=== PATIENT | male | born 1995 | race Caucasian/White ===

== ENCOUNTER 2022-07-05 17:41 | Emergency (ER) | payer OTHER ==
[~2022-07-05] VITALS: Ht 180.3 cm; Wt 61.2 kg
--- NOTE | 2022-07-05 17:50 | NUR ---
BIBA TO ROOM 5
[2022-07-05 17:51] VITALS: BP 111/68
--- NOTE | 2022-07-05 18:10 | NUR ---
26/M [place] FROM STREETS. PER EMS BYSTANDERS CALLED 911 STATING PATIENT HAD A "POSSIBLE SEIZURE," STATING PATIENT FELL FORWARD. SOME BLEEDING NOTED TO NOSE, PATIENT DENIES HEAD OR NECK PAIN, REPORTS HE IS UNSURE OF MEDS HE TAKES FOR SEIZURES BUT STATES HE IS COMPLIANT. UPON ARRIVAL PATIENT PLACED ON BEDSIDE BREAKER HAND, SEIZURE PRECAUTIONS IN PLACE.
--- NOTE | 2022-07-05 18:13 | NUR ---
26YO MALE PT BIBA FROM STREETS DUE TO SEIZURE. PER [facility], 911 WAS CALLED BY BYSTANDERS WHO STATE PT FELL FORWARD AND HAD "SHAKES" FOR UNKNOWN DURATION. UPON ARRIVAL PT PRESENTS WITH DRIED BLOOD AROUND NOSE AND IN NOSTRILS, NO ACTIVE BLEEDING AT THIS TIME. PT STATES BEING COMPLIANT WITH MEDICATION, UNSURE OF NAME.DENIES PAIN , N/V/D , SOB, FEVER OR CHILLS. PT AAOX4, ON BATCH FREEZER, BED AT LOWEST POSITION, BED RAILS UPX2. SEIZURE PADS IN PLACE. HX:SEIZURES NKA
[2022-07-05] MEDS ORDERED: LORazepam 1 MG TAB PO ONE (19:00)
[2022-07-05 20:01] LABS: BASOPHILS % (AUTO) 0.6 % (0.0-2.0); EOSINOPHILS # (AUTO) 0.1 K/uL (0-0.4); HEMATOCRIT 40.4 % (36-52); HEMOGLOBIN 13.7 g/dL (12.0-18.0); LYMPHOCYTES # (AUTO) 1.6 K/uL (2.0-11.5); LYMPHOCYTES % (AUTO) 22.9 % (20.5-51.1); MEAN CORPUSCULAR HEMOGLOBIN 32 pg (27-31); MEAN CORPUSCULAR HGB CONC 34 g/dL (33-37); MEAN CORPUSCULAR VOLUME 94.1 fL (80-94); MONOCYTES # (AUTO) 0.7 K/uL (0.8-1.0); MONOCYTES % (AUTO) 10.1 % (1.7-9.3); NEUTROPHILS # (AUTO) 4.5 K/uL (1.8-7.7); NEUTROPHILS % (AUTO) 64.4 % (42.2-75.2); PLATELET COUNT (AUTO) 230 K/uL (140-450); RED BLOOD CELL COUNT(AUTO) 4.29 MIL/uL (4.20-6.10); RED CELL DISTRIBUTION WIDTH 13.8 % (11.6-13.7); WHITE BLOOD COUNT (AUTO) 7.1 K/uL (4.8-10.8)
--- NOTE | 2022-07-05 20:18 | NUR ---
ASSISTED PT TO BATHROOM. GAIT STEADY.
[2022-07-05 20:20] LABS: ALBUMIN 3.7 g/dL (3.4-5.0); ANION GAP 13.6 (8-16); CARBON DIOXIDE 28.7 mmol/L (21-32); CREATININE 0.8 mg/dL (0.6-1.3); POTASSIUM 3.3 mmol/L (3.5-5.1)
--- NOTE | 2022-07-05 20:27 | NUR ---
URINE OBTAINED AND SENT TO LAB
--- NOTE | 2022-07-05 20:45 | NUR ---
26YR OLD MALE BIB EMS C/O FALL S/P SZ. PT WAS WALKING ON SIDEWALK, BYSTANDERS WITNESSED HIM FALL TO SZ. FACIAL INJURY TO NOSE WITH DRY BLOOD. R EYE WITH SLIGHT BRUISING AND SWELLING UNDER EYE. PAIN LEVEL 5/10. PT IS A&OX3. SPEECH IS DELAYED. PT IS FROM THE STREETS. SPOKE WITH PT FATHER PER REQUEST. HOB ELEVATED BED AT LOWEST POSITION. NKDA SZ
[2022-07-05 20:46] LABS: TOTAL BILIRUBIN 0.3 mg/dL (0.0-1.0)
[2022-07-05 21:08] LABS: BENZODIAZEPINE, URINE POSITIVE ng/mL (NEG <=200)
--- NOTE | 2022-07-05 21:08 | NUR ---
PT DAD AND DR FERRARA AT BEDSIDE
[2022-07-05 21:09] LABS: BARBITURATE, URINE NEGATIVE ng/ml (NEG <=200); CANNABINOID, URINE NEGATIVE ng/mL (NEG <=50); COCAINE, URINE NEGATIVE ng/mL (NEG <=300); OPIATE, URINE NEGATIVE ng/mL (NEG <=2000); PHENCYCLIDINE SCREEN,URINE NEGATIVE ng/mL (NEG <=25)
[2022-07-05] MEDS ORDERED: DIVALPROEX 500 MG TABEC PO ONE (21:40)
[2022-07-05] MEDS ORDERED: CRUSHER, PILL MC ONE (21:48)
[2022-07-05 21:51] VITALS: BP 119/62
--- NOTE | 2022-07-05 21:51 | NUR ---
Patient discharged with v/s stable. Written and verbal after care instructions given and explained. Patient verbalized understanding. Ambulatory with steady gait. All questions addressed prior to discharge. Advised to follow up with PMD.
--- NOTE | 2022-07-05 21:51 | NUR ---
Chart checked and completed.
== END 2022-07-05 21:51 | disposition home or self-care (01) ==
LOC: MED 17:41
DX: G40.89 Other seizures (principal); F32.A Depression, unspecified; Z98.890 Other specified postprocedural states
CPT/HCPCS: 36415; 80053; 80305; 85025; 93005; 99285; G0482